=== PATIENT | male | born 1950 | race Caucasian/White ===

== ENCOUNTER 2017-03-27 23:41 | Inpatient (IN) | payer OTHER ==
[~2017-03-27] VITALS: Ht 175.3 cm; Wt 100.7 kg
[2017-03-28 00:35] LABS: BASOPHIL % 0.5 % (0-2); PLATELET COUNT 173 x10^3mcL (130-400); RED CELL DISTRIBUTION WIDTH 13.1 % (11.5-14.5)
[2017-03-28 00:44] LABS: CALCIUM 8.7 mg/dL (8.5-10.1); CARBON DIOXIDE 24.1 mmol/L (21-32); CHLORIDE SERUM 105 mmol/L (98-107); CREATININE SERUM 0.9 mg/dL (0.7-1.3); GFR1 > 60 mL/min; GLUCOSE SERUM 161 mg/dL (74-106); POTASSIUM SERUM 3.8 mmol/L (3.5-5.1); SODIUM SERUM 138 mmol/L (136-145)
[2017-03-28] MEDS ORDERED: MELOXICAM7.5 M1 PO (00:45)
[2017-03-28] MEDS ORDERED: LISINOPRIL10 MG PO (00:45)
[2017-03-28] MEDS ORDERED: LOVASTATIN20 MG PO (00:46)
[2017-03-28] MEDS ORDERED: METFORMIN HCL500 MG PO (00:47)
[2017-03-28] MEDS ORDERED: ASPIR 8181 MG PO (00:47)
[2017-03-28 00:49] LABS: ALBUMIN 3.5 g/dL (3.4-5.0); ALKALINE PHOSPHATASE 83 U/L (46-116); ALT/SGPT 54 U/L (16-63); AST/SGOT 46 U/L (15-37); BILIRUBIN TOTAL 0.3 mg/dL (0.20-1.00); TOTAL PROTEIN, SERUM 6.8 g/dL (6.4-8.2)
[2017-03-28 01:19] VITALS: BP 136/76
[2017-03-28 02:14] LABS: CHOLESTEROL/HDL RATIO 4.2
[2017-03-28 02:20] LABS: T3 TOTAL 1.07 ng/mL
[2017-03-28 02:25] LABS: FREE T4 0.9 ng/dL (0.76-1.46); FREE THYROXINE INDEX 2.2 ug/dL (1.4-4.5); T4(THYROXINE) 6.8 ug/dL (4.7-13.3)
[2017-03-28 05:28] VITALS: BP 133/77
[2017-03-28 06:24] LABS: microscopic required? NO
[2017-03-28 06:25] LABS: CALCIUM 8.7 mg/dL (8.5-10.1); CHLORIDE SERUM 106 mmol/L (98-107); CREATININE SERUM 0.9 mg/dL (0.7-1.3); GFR1 > 60 mL/min; GLUCOSE SERUM 118 mg/dL (74-106); MAGNESIUM 1.9 mg/dL (1.8-2.4); PHOSPHOROUS 3.5 mg/dL (2.5-4.9); POTASSIUM SERUM 3.7 mmol/L (3.5-5.1); SODIUM SERUM 141 mmol/L (136-145)
[2017-03-28 06:30] LABS: BASOPHIL % 0.4 % (0-2); PLATELET COUNT 174 x10^3mcL (130-400); RED CELL DISTRIBUTION WIDTH 13.2 % (11.5-14.5)
[2017-03-28 07:16] LABS: urine erythrocyte NEGATIVE (NEGATIVE)
[2017-03-28 09:26] VITALS: BP 135/77
== END 2017-03-28 10:26 | disposition left against medical advice (07) | DRG 205 ==
LOC: ED 23:41 → DU 03-28 00:22
PROVIDERS: Emergency Medicine; ADMIT Family Medicine
DX: M94.0 Chondrocostal junction syndrome [Tietze] (principal); N17.0 Acute kidney failure with tubular necrosis; D68.69 Other thrombophilia; E11.65 Type 2 diabetes mellitus with hyperglycemia; E78.5 Hyperlipidemia, unspecified; I10 Essential (primary) hypertension; Z79.82 Long term (current) use of aspirin; Z68.32 Body mass index [BMI] 32.0-32.9, adult; F17.210 Nicotine dependence, cigarettes, uncomplicated; Z79.84 Long term (current) use of oral hypoglycemic drugs
CPT/HCPCS: 82962; 83880; 84439; J2270; J7030; Q0092

== ENCOUNTER 2017-12-31 20:58 | Emergency (ER) | payer OTHER ==
[~2017-12-31] VITALS: Ht 175.3 cm; Wt 97.5 kg
[~2017-12-31 20:58] MED LIST: ASPIR 8181 MG PO; LISINOPRIL10 MG PO; LOVASTATIN20 MG PO; MELOXICAM7.5 M1 PO; METFORMIN HCL500 MG PO
[2017-12-31 21:06] VITALS: Ht 175.3 cm; Wt 97.5 kg
[2017-12-31 21:20] LABS: microscopic required? NO
[2017-12-31 21:35] LABS: urine erythrocyte NEGATIVE (NEGATIVE)
[2017-12-31 23:32] VITALS: BP 148/61
== END 2017-12-31 23:33 | disposition home or self-care (01) ==
LOC: ED 20:58
PROVIDERS: Emergency Medicine
DX: S39.012A Strain of muscle, fascia and tendon of lower back, initial encounter (principal); I10 Essential (primary) hypertension; E11.9 Type 2 diabetes mellitus without complications; Z86.73 Personal history of transient ischemic attack (TIA), and cerebral infarction without residual deficits; Y93.89 Activity, other specified; X58.XXXA Exposure to other specified factors, initial encounter; Y92.89 Other specified places as the place of occurrence of the external cause; Y99.8 Other external cause status
CPT/HCPCS: J1885

== ENCOUNTER 2018-05-23 17:00 | Emergency (ER) | payer OTHER ==
[~2018-05-23] VITALS: Ht 175.3 cm; Wt 98.4 kg
[2018-05-23 17:09] VITALS: Ht 175.3 cm; Wt 98.4 kg
[2018-05-23 17:40] LABS: microscopic required? NO
[2018-05-23 17:46] LABS: BASOPHIL % 0.5 % (0-2); PLATELET COUNT 182 x10^3mcL (130-400); RED CELL DISTRIBUTION WIDTH 13.3 % (11.5-14.5)
[2018-05-23 17:50] LABS: urine erythrocyte NEGATIVE (NEGATIVE)
[2018-05-23 17:59] LABS: CALCIUM 9.1 mg/dL (8.5-10.1); CARBON DIOXIDE 26.7 mmol/L (21-32); CHLORIDE SERUM 105 mmol/L (98-107); GFR1 > 60 mL/min; GLUCOSE SERUM 118 mg/dL (74-106); POTASSIUM SERUM 3.7 mmol/L (3.5-5.1); SODIUM SERUM 141 mmol/L (136-145)
[2018-05-23 18:03] LABS: ALBUMIN 3.8 g/dL (3.4-5.0); ALKALINE PHOSPHATASE 83 U/L (46-116); ALT/SGPT 65 U/L (16-63); AST/SGOT 52 U/L (15-37); BILIRUBIN TOTAL 0.45 mg/dL (0.20-1.00); TOTAL PROTEIN, SERUM 7.4 g/dL (6.4-8.2)
[2018-05-23 18:50] VITALS: BP 144/77
== END 2018-05-23 19:01 | disposition home or self-care (01) ==
LOC: ED 17:00
PROVIDERS: Emergency Medicine
DX: K52.9 Noninfective gastroenteritis and colitis, unspecified (principal); I10 Essential (primary) hypertension; E11.9 Type 2 diabetes mellitus without complications; G89.29 Other chronic pain; M54.5 Low back pain; F17.210 Nicotine dependence, cigarettes, uncomplicated
CPT/HCPCS: J1885; J7030

== ENCOUNTER 2018-09-13 06:04 | Emergency (ER) | payer OTHER ==
[~2018-09-13] VITALS: Ht 175.3 cm; Wt 89.4 kg
[2018-09-13 06:15] VITALS: Ht 175.3 cm; Wt 89.4 kg
[2018-09-13 07:01] LABS: CALCIUM 9.4 mg/dL (8.5-10.1); CARBON DIOXIDE 26.8 mmol/L (21-32); CHLORIDE SERUM 103 mmol/L (98-107); GFR1 > 60 mL/min; GLUCOSE SERUM 119 mg/dL (74-106); POTASSIUM SERUM 4.2 mmol/L (3.5-5.1); SODIUM SERUM 138 mmol/L (136-145)
[2018-09-13 07:10] LABS: ALBUMIN 3.8 g/dL (3.4-5.0); ALKALINE PHOSPHATASE 87 U/L (46-116); ALT/SGPT 50 U/L (16-63); AST/SGOT 41 U/L (15-37); BILIRUBIN TOTAL 0.6 mg/dL (0.20-1.00); TOTAL PROTEIN, SERUM 7.8 g/dL (6.4-8.2)
[2018-09-13 08:15] LABS: BASOPHIL % 0.7 % (0-2); PLATELET COUNT 175 x10^3mcL (130-400); RED CELL DISTRIBUTION WIDTH 13.4 % (11.5-14.5)
[2018-09-13 08:40] VITALS: BP 143/69
== END 2018-09-13 08:40 | disposition home or self-care (01) ==
LOC: ED 06:04
PROVIDERS: Emergency Medicine
DX: R04.0 Epistaxis (principal); I10 Essential (primary) hypertension; E11.9 Type 2 diabetes mellitus without complications; G89.29 Other chronic pain; M54.9 Dorsalgia, unspecified; F17.210 Nicotine dependence, cigarettes, uncomplicated; Z98.890 Other specified postprocedural states
CPT/HCPCS: 36415

== ENCOUNTER 2019-04-24 22:35 | Observation (INO) | payer OTHER ==
[~2019-04-24] VITALS: Ht 175.3 cm; Wt 98.9 kg
[2019-04-24 22:47] VITALS: Ht 175.3 cm; Wt 98.9 kg
[2019-04-24 23:51] LABS: BASOPHIL % 0.4 % (0-2); PLATELET COUNT 138 x10^3mcL (130-400); RED CELL DISTRIBUTION WIDTH 13.4 % (11.5-14.5)
[2019-04-24 23:53] LABS: CALCIUM 9.4 mg/dL (8.5-10.1); CARBON DIOXIDE 26.7 mmol/L (21-32); CHLORIDE SERUM 108 mmol/L (98-107); CREATININE SERUM 1.1 mg/dL (0.7-1.3); GFR1 > 60 mL/min; GLUCOSE SERUM 126 mg/dL (74-106); POTASSIUM SERUM 3.7 mmol/L (3.5-5.1); SODIUM SERUM 144 mmol/L (136-145)
[2019-04-24 23:58] LABS: ALBUMIN 3.7 g/dL (3.4-5.0); ALKALINE PHOSPHATASE 79 U/L (46-116); ALT/SGPT 51 U/L (16-63); AST/SGOT 33 U/L (15-37); BILIRUBIN TOTAL 0.43 mg/dL (0.20-1.00); TOTAL PROTEIN, SERUM 6.7 g/dL (6.4-8.2)
[2019-04-25] MEDS ORDERED: LOVASTATIN40 MG PO (01:58)
[2019-04-25] MEDS ORDERED: KAPVAY0.1 MG PO (01:59)
[2019-04-25] MEDS ORDERED: ALL DAY ALLERGY10 M2 PO (01:59)
[2019-04-25] MEDS ORDERED: MECLIZINE HYDRO25 M1 PO (02:00)
[2019-04-25] MEDS ORDERED: TOPAMAX25 MG PO (02:00)
[2019-04-25] MEDS ORDERED: NITROGLYCERIN0.4 MG SL (02:01)
[2019-04-25] MEDS ORDERED: TRAZODONE50 M1 PO (02:02)
[2019-04-25] MEDS ORDERED: FLOVENT DI100 MCG/A1 IH (02:02)
[2019-04-25 03:43] VITALS: BP 119/75
[2019-04-25 04:30] LABS: MAGNESIUM 2.2 mg/dL (1.8-2.4)
[2019-04-25 05:56] VITALS: BP 134/77
[2019-04-25 09:19] VITALS: BP 144/63
[2019-04-25 12:29] VITALS: BP 134/73
[2019-04-25 13:02] VITALS: BP 134/73
== END 2019-04-25 15:09 | disposition home or self-care (01) | DRG 313 ==
LOC: ED 22:35 → DU 04-25 01:56
PROVIDERS: Emergency Medicine; ADMIT Internal Medicine Pulmonary Disease
DX: R07.89 Other chest pain (principal); E11.9 Type 2 diabetes mellitus without complications; I10 Essential (primary) hypertension; E78.5 Hyperlipidemia, unspecified; F17.210 Nicotine dependence, cigarettes, uncomplicated
CPT/HCPCS: 82962; 83880; 85378; G0378; J2270; J8597; Q0092

== ENCOUNTER 2019-11-02 16:36 | Observation (INO) | payer OTHER, MEDICAID ==
[~2019-11-02] VITALS: Ht 175.3 cm; Wt 83.9 kg
[~2019-11-02 16:36] MED LIST changes: +ALL DAY ALLERGY10 M2 PO; +FLOVENT DI100 MCG/A1 IH; +KAPVAY0.1 MG PO; +LOVASTATIN40 MG PO; +MECLIZINE HYDRO25 M1 PO; +NITROGLYCERIN0.4 MG SL; +TOPAMAX25 MG PO; +TRAZODONE50 M1 PO
[2019-11-02 16:40] VITALS: Ht 175.3 cm; Wt 83.9 kg
[2019-11-02 17:50] LABS: BASOPHIL % 0.2 % (0-2); RED CELL DISTRIBUTION WIDTH 13.8 % (11.5-14.5)
[2019-11-02 17:51] LABS: PLATELET COUNT 125 x10^3mcL (130-400)
[2019-11-02 18:04] LABS: CALCIUM 8.1 mg/dL (8.5-10.1); CARBON DIOXIDE 24.4 mmol/L (21-32); CHLORIDE SERUM 103 mmol/L (98-107); CREATININE SERUM 1.3 mg/dL (0.7-1.3); GFR1 58 mL/min; GLUCOSE SERUM 161 mg/dL (74-106); POTASSIUM SERUM 3.6 mmol/L (3.5-5.1); SODIUM SERUM 137 mmol/L (136-145)
[2019-11-02 18:08] LABS: ALBUMIN 3.4 g/dL (3.4-5.0); ALKALINE PHOSPHATASE 73 U/L (46-116); ALT/SGPT 82 U/L (16-63); AST/SGOT 108 U/L (15-37); BILIRUBIN TOTAL 0.31 mg/dL (0.20-1.00); TOTAL PROTEIN, SERUM 6.8 g/dL (6.4-8.2)
[2019-11-02] MEDS ORDERED: LISINOPRIL40 MG PO (19:00)
[2019-11-02] MEDS ORDERED: HYDROCODONE BIT1 T39 PO (19:00)
[2019-11-02 19:45] LABS: UA SPECIFIC GRAVITY 1.015 (1.005-1.035); microscopic required? YES; urine erythrocyte TRACE (NEGATIVE)
[2019-11-02] MEDS ORDERED: ZESTRIL40 MG PO (20:56)
[2019-11-02] MEDS ORDERED: NOR7T PO (20:56)
[2019-11-02] MEDS ORDERED: NITROGLYCERIN0.4 MG PO (20:57)
[2019-11-02] MEDS ORDERED: LOVASTATIN40 MG PO (20:57)
[2019-11-02 22:57] VITALS: BP 139/68
[2019-11-03 05:02] VITALS: BP 121/72
[2019-11-03 09:00] VITALS: BP 136/64
[2019-11-03] MEDS ORDERED: TAMIFLU75 MG PO (09:01)
[2019-11-03 10:06] LABS: BASOPHIL % 0.4 % (0-2); RED CELL DISTRIBUTION WIDTH 13.6 % (11.5-14.5)
[2019-11-03 10:09] LABS: PLATELET COUNT 122 x10^3mcL (130-400)
[2019-11-03 10:12] LABS: CALCIUM 8.4 mg/dL (8.5-10.1); CARBON DIOXIDE 23.2 mmol/L (21-32); CHLORIDE SERUM 104 mmol/L (98-107); CREATININE SERUM 0.9 mg/dL (0.7-1.3); GFR1 > 60 mL/min; GLUCOSE SERUM 127 mg/dL (74-106); POTASSIUM SERUM 3.5 mmol/L (3.5-5.1); SODIUM SERUM 137 mmol/L (136-145)
[2019-11-03 10:44] VITALS: BP 136/64
[2019-11-03 10:58] LABS: CK-MB 0.7 ng/mL (0-3.6)
== END 2019-11-03 11:55 | disposition home or self-care (01) ==
LOC: ED 16:36 → DU 20:02
PROVIDERS: Emergency Medicine; ADMIT Internal Medicine
DX: J11.1 Influenza due to unidentified influenza virus with other respiratory manifestations (principal); E86.0 Dehydration; R55 Syncope and collapse; E11.9 Type 2 diabetes mellitus without complications; I10 Essential (primary) hypertension; E78.5 Hyperlipidemia, unspecified; M19.90 Unspecified osteoarthritis, unspecified site; F17.210 Nicotine dependence, cigarettes, uncomplicated
CPT/HCPCS: 82962; 87804; 99406; C9113; G0378; J1650; J7030; Q0092